=== PATIENT | female | born 1985 | race Asian ===

== ENCOUNTER 2016-10-23 06:46 | Inpatient (IN) | payer BC ==
[~2016-10-23 06:46] MED LIST: Buffered Lidocaine 0.9% SYRIN* 5 ML/SYR SYRINGE INTRADERM ONE; Famotidine IV* 10 MG/ML 2 ML (20 mg) IV ONE
[2016-10-23] MEDS ORDERED: Famotidine IV* 10 MG/ML 2 ML (20 mg) ONE (06:56)
[2016-10-23] MEDS ORDERED: ceFAZolin 2 GM PREMIX(*) 2 GM/50 ML BAG IVPB ONE (06:56)
[2016-10-23] MEDS ORDERED: KETAMINE HCL* 50 MG/ML 10 ML VIAL ONE (08:30)
[2016-10-23] MEDS ORDERED: Midazolam* 1 MG/ML 5 ML VIAL (5 MG) ONE (08:30)
[2016-10-23] MEDS ORDERED: Morphine PF AMP (0.5MG/ML)* 5 MG/10 ML AMP ONE (08:30)
[2016-10-23] MEDS ORDERED: oxyCODONE/Acetamin 5/325 MG* TAB PO PRN (09:05)
[2016-10-23] MEDS ORDERED: PROCHLORPERAZINE INJ 5 MG/ML 2 ML VIAL IV PRN (09:05)
[2016-10-23] MEDS ORDERED: Scopolomine PATCH Remove* 1 NOTE MISC PATCH OFF PRN (09:05)
[2016-10-23] MEDS ORDERED: Naloxone* 0.4 MG/ML 1 ML VIAL IV PRN (09:05)
[2016-10-23] MEDS ORDERED: Ondansetron INJ* 2 MG/ML VIAL IV PRN (09:05)
[2016-10-23] MEDS ORDERED: fentaNYL* 50 MCG/ML 2 ML VIAL (100 MCG VIAL) IV PRN (09:08)
[2016-10-23] MEDS ORDERED: Ondansetron INJ* 2 MG/ML VIAL ONE (09:49)
[2016-10-23] MEDS ORDERED: OXYTOCIN* 10 UNITS/ML 1 ML VIAL ONE (09:49)
[2016-10-23] MEDS ORDERED: Dexamethasone IV* 4 MG/ML 1 ML (4 MG) ONE (09:49)
[2016-10-23] MEDS ORDERED: Scopolamine 1.5 mg* PATCH ONE (09:49)
[2016-10-23] MEDS ORDERED: hydrALAZINE IV* 20 MG/ML VIAL ONE (10:04)
[2016-10-23] MEDS ORDERED: Dibucaine 1% 28.35 GM TUBE PR PRN (10:40)
[2016-10-23] MEDS ORDERED: Acetaminophen TAB* 325 MG PO PRN (10:40)
[2016-10-23] MEDS ORDERED: Witch Hazel PAD* JAR TOPICAL PRN (10:40)
[2016-10-23] MEDS ORDERED: Glycerin ADULT SUPP PR PRN (10:40)
[2016-10-23] MEDS ORDERED: Oxytocin in LR* 20 UNITS/1,000 ML BAG IVPB SCH (11:00)
[2016-10-23] MEDS ORDERED: Dextrose 50% Syringe 50 ML* 25 GM/50 ML SYRINGE IV PUSH PRN (11:01)
[2016-10-23] MEDS: Ibuprofen TAB* 600 MG PO PRN ×2 (11:47→17:46)
[2016-10-23] MEDS: Simethicone CHEW TAB* 80 MG PO SCH ×3 (11:47→20:50)
--- NOTE | 2016-10-23 12:26 | OP ---
OPERATIVE NOTE:* ADDENDUM: DESCRIPTION OF PROCEDURE: The patient was brought to the operating room. When spinal anesthesia was found to be adequate, a Rahman catheter was placed under sterile conditions. The patient was prepped and draped in the usual sterile fashion in the dorsal supine position with a leftward tilt. Time-out was performed. A Pfannenstiel skin incision was made through the old incision site. This was carried down to the underlying layer of fascia. The fascia was incised in the midline and the fascial incision was extended laterally using the Mars scissors. The fascia was grasped with the Tammy clamps and the rectus muscle was dissected using sharp and blunt dissection. The rectus muscle was in the midline. The peritoneum was identified, tented up, and entered. The peritoneal incision was extended superiorly and inferiorly with good visualization of the bladder. The bladder blade was inserted. The vesicouterine peritoneum was identified and a bladder flap was created. The bladder blade was reinserted and a low flap transverse incision was made on the uterus to the level of the membranes. The uterine incision was extended laterally bluntly. Membranes were ruptured with an Allis clamp. Clear amniotic fluid was encountered. The was delivered atraumatically from the vertex presentation. The cord was milked. The cord was clamped and cut and the infant was handed off to the waiting housetrailer servicer, Dr. Oliver. The baby was vigorous. The 's were 9 and 9. The weight was 8 pounds 3 ounces. The placenta was delivered. The uterus was cleared of all clots and debris. The uterus was exteriorized. The uterine incision was repaired using 0 Vicryl in a running locked fashion. A second layer of the same suture was used to imbricate and obtained excellent hemostasis. The ovaries and fallopian tubes were examined and found to be normal. The abdomen and pelvis were copiously irrigated with warm normal saline. Once again, the uterine incision was examined and found to be hemostatic. The uterus was returned to the pelvis. The gutters were cleared of all clots and debris. The peritoneum was closed using 3-0 Vicryl. The subfascial layer was examined and found to be hemostatic. The fascia was closed using 0 Vicryl. The subcutaneous tissue was irrigated. Any small bleeders were cauterized with the Bovie. The subcutaneous tissue was reapproximated with 3 interrupted sutures of 3-0 Vicryl. The skin was closed with 4-0 Monocryl in a subcuticular fashion. Steri -Strips were applied. A pressure dressing was applied and the patient was brought to recovery room, awake and in stable condition. [id number]/[facility] #: [id number] MTDDevante
--- NOTE | 2016-10-23 12:34 | OP ---
OPERATIVE REPORT: DATE OF OPERATION: 10/23/16 DATE OF : 83 SURGEON: Meghan Bender MD. SCREEN PRINTER: Dr. Eisenberg. ANESTHESIOLOGIST: Dr. Marie. ANESTHESIA: Spinal. PRE-OP DIAGNOSES: Prior , 37 weeks, mild preeclampsia superimposed on chronic hypertension . POST-OP DIAGNOSES: Prior , 37 weeks, mild preeclampsia superimposed on chronic hypertensio n. OPERATIVE PROCEDURE: Repeat low-flap transverse section via Pfannenstiel. Uterus closed in 2 layers. ESTIMATED BLOOD LOSS: 600 cc. URINE OUTPUT: 300 cc clear urine. FINDINGS: Viable male infant, the vertex was floating. The baby weighed 8 pounds 3 ounces. ' s were 9 and 9. Clear amniotic fluid. Normal-appearing uterus. Normal-appearing ovaries and fallop andreea tubes bilaterally. COMPLICATIONS: None. COUNTS: Sponge, lap, and needle count correct x2. CONDITION: The patient was brought to recovery room, awake and in stable condition. DICTATION ENDS ABRUPTLY [id number]/[facility] #: [id number]
[2016-10-23 13:30] LABS: Hematocrit 40 % (35-47); Mean Corpuscular HGB Conc 33 g/dl (31-36); Mean Corpuscular Hemoglobin 26 pg (27-31); Mean Corpuscular Volume 80 fL (80-97); Mean Platelet Volume 9 um3 (7.4-10.4); Red Blood Count 4.96 10^6/ul (4.0-5.4); Red Cell Distribution Width 15 % (10.5-15); White Blood Count 15.2 10^3/ul (3.5-10.8)
[2016-10-23 13:38] LABS: EGFR African American 224.9 (>60); EGFR Non-African American 174.9 (>60)
[2016-10-23] MEDS: Heparin VIAL(*) 5000 UNITS/ML VIAL (FIVE THOUSAND) SUBCUT SCH ×2 (16:08→23:45)
[2016-10-23] MEDS: Docusate CAP* 100 MG PO SCH ×2 (16:11→20:49)
[2016-10-23] MEDS: Insulin LISPRO* 1 UNITS UNIT SUBCUT SCH ×2 (20:05→20:50)
[2016-10-23] MEDS: Labetalol TAB* 300 MG PO SCH (20:50)
[2016-10-24] MEDS: Insulin LISPRO* 1 UNITS UNIT SUBCUT SCH (07:30)
[2016-10-24] MEDS: Heparin VIAL(*) 5000 UNITS/ML VIAL (FIVE THOUSAND) SUBCUT SCH ×2 (08:11→16:28)
[2016-10-24 08:38] LABS: Hematocrit 35 % (35-47); Hemoglobin 11.5 g/dl (12.0-16.0); Mean Corpuscular HGB Conc 33 g/dl (31-36); Mean Corpuscular Hemoglobin 27 pg (27-31); Mean Corpuscular Volume 81 fL (80-97); Mean Platelet Volume 9 um3 (7.4-10.4); Red Blood Count 4.31 10^6/ul (4.0-5.4); Red Cell Distribution Width 14 % (10.5-15); White Blood Count 10.1 10^3/ul (3.5-10.8)
[2016-10-24] MEDS ORDERED: oxyCODONE/Acetamin 5/325 MG* TAB PO PRN ×2 (08:50)
[2016-10-24] MEDS: Docusate CAP* 100 MG PO SCH ×3 (08:52→21:11)
[2016-10-24] MEDS: Labetalol TAB* 300 MG PO SCH ×2 (08:52→19:59)
[2016-10-24] MEDS: Levothyroxine TAB* 100 MCG TAB PO SCH (08:52)
[2016-10-24] MEDS: Simethicone CHEW TAB* 80 MG PO SCH ×4 (08:52→21:11)
[2016-10-24] MEDS ORDERED: Ferrous Gluconate TAB* 324 MG TAB PO SCH (09:00)
[2016-10-24] MEDS: Ibuprofen TAB* 600 MG PO PRN ×3 (09:01→21:11)
[2016-10-25] MEDS: Ibuprofen TAB* 600 MG PO PRN ×2 (03:09→08:41)
[2016-10-25] MEDS: Levothyroxine TAB* 100 MCG TAB PO SCH (06:03)
[2016-10-25] MEDS: Docusate CAP* 100 MG PO SCH (08:40)
[2016-10-25] MEDS: Labetalol TAB* 300 MG PO SCH (08:40)
[2016-10-25] MEDS: Simethicone CHEW TAB* 80 MG PO SCH (08:40)
[2016-10-25] MEDS: Heparin VIAL(*) 5000 UNITS/ML VIAL (FIVE THOUSAND) SUBCUT SCH (08:42)
[2016-10-25 11:33] VITALS: BP 144/80
== END 2016-10-25 13:20 | disposition home or self-care (01) | DRG 540 ==
LOC: MCHOB 06:46
PROVIDERS: ADMIT Obstetrics & Gynecology; ATTEND Obstetrics & Gynecology
PROC: 10D00Z1 Extraction of Products of Conception, Low, Open Approach (ICD-10-PCS; principal; 2016-10-23 08:45)
DX: O34.211 Maternal care for low transverse scar from previous cesarean delivery (principal); Z68.41 Body mass index [BMI] 40.0-44.9, adult; O14.04 Mild to moderate pre-eclampsia, complicating childbirth; O24.429 Gestational diabetes mellitus in childbirth, unspecified control; O16.4 Unspecified maternal hypertension, complicating childbirth; O99.214 Obesity complicating childbirth; O99.284 Endocrine, nutritional and metabolic diseases complicating childbirth; E03.9 Hypothyroidism, unspecified; E66.01 Morbid (severe) obesity due to excess calories; Z3A.37 37 weeks gestation of pregnancy; Z37.0 Single live birth
CPT/HCPCS: 36415; 82565; 84520; 85025; 85610; 85730; A9270-GY; J0360; J0690; J1100; J1644; J2250; J2405; J2590

== ENCOUNTER 2016-11-21 10:08 | Emergency (ER) | payer BC ==
[2016-11-21 11:02] VITALS: BP 161/109
--- NOTE | 2016-11-21 11:25 | UC ---
Eye Complaint HPI - HPI Summary HPI Summary: complaint of waking up in the middle of the night with itching red eye there was drainge coming out of her eye denies vision changes and eye pain hasn't taken blood pressure today - History of Current Complaint Hx Obtained From: Patient Hx Last Menstrual Period: 02/2016 <Sara Wick - Last Filed: 11/21/16 11:27> <Lisbeth Wing - Last Filed: 11/21/16 12:34> - History of Current Complaint Chief Complaint: UCEye Stated Complaint: POSSIBLE PINK EYE Time Seen by Provider: 11/21/16 11:14 - Allergies/Home Medications Allergies/Adverse Reactions: Allergies Allergy/AdvReac Type Severity Reaction Status Date / Time Clindamycin Allergy Intermediate Rash Verified 11/21/16 10:56 Home Medications: Home Medications Sertraline* [Zoloft*] 25 mg PO DAILY 11/21/16 [History Confirmed 11/21/16] PMH/Surg Hx/FS Hx/Imm Hx Previously Healthy: Yes Endocrine History: Hypothyroidism Cardiovascular History: Hypertension - Surgical History Surgical History: Yes Surgery Procedure, Year, and Place: Apr 2012 -Appendectomy. September 2012, OCTOBER 2016 - - Family History Known Family History: Negative: Cardiac Disease, Hypertension, Diabetes - Social History Occupation: Employed Full-time Lives: With Family Alcohol Use: None Substance Use Type: None Smoking Status (MU): Never Smoked Tobacco Type: Cigarettes Have You Smoked in the Last Year: No When Did the Patient Quit Smoking/Using Tobacco: 2011 - Immunization History Most Recent Influenza Vaccination: declined Most Recent Pneumonia Vaccination: unsure <Sara Wick - Last Filed: 11/21/16 11:27> Review of Systems Constitutional: Negative Skin: Negative Eyes: Drainage, Eye Redness ENT: Negative Respiratory: Negative Cardiovascular: Negative Gastrointestinal: Negative Genitourinary: Negative Motor: Negative Neurovascular: Negative Musculoskeletal: Negative Neurological: Negative Psychological: Negative All Other Systems Reviewed And Are Negative: Yes <Sara Wick - Last Filed: 11/21/16 11:27> Physical Exam Triage Information Reviewed: Yes Appearance: No Pain Distress, Well-Nourished Vital Signs: Initial Vital Signs Temp 98.0 F 11/21/16 10:58 Pulse 85 11/21/16 10:58 Resp 16 11/21/16 10:58 BP 161/109 11/21/16 10:58 Pulse Ox 97 11/21/16 10:58 Vital Signs Reviewed: Yes Eyes: Positive: Conjunctiva Inflamed - left, Discharge - left ENT: Positive: Pharynx normal, TMs normal Neck: Positive: No Lymphadenopathy Respiratory: Positive: Lungs clear, Normal breath sounds, No respiratory distress, No accessory muscle use Cardiovascular: Positive: RRR, No Murmur, Pulses Normal Abdomen Description: Positive: Nontender, Soft Bowel Sounds: Positive: Present Musculoskeletal: Positive: No Edema Neurological: Positive: Alert Psychological Exam: Normal Skin Exam: Normal <Sara Wick - Last Filed: 11/21/16 11:27> Vital Signs: Initial Vital Signs Temp 98.0 F 11/21/16 10:58 Pulse 85 11/21/16 10:58 Resp 16 11/21/16 10:58 BP 161/109 11/21/16 10:58 Pulse Ox 97 11/21/16 10:58 <Lisbeth Wing - Last Filed: 11/21/16 12:34> Eye Complaint Course/Dx - Differential Dx/Diagnosis Differential Diagnosis/HQI/PQRI: Conjunctivitis, Corneal Abrasion Provider Diagnoses: left conjuctivitis, elevated blood pressure <Sara Wick - Last Filed: 11/21/16 11:27> Discharge <Sara Wick - Last Filed: 11/21/16 11:27> <Lisbeth Wing - Last Filed: 11/21/16 12:34> - Discharge Plan Condition: Stable Disposition: HOME Prescriptions: Tobramycin (Ophth) [Tobrex] 2 drop OP Q4HR #1 remedios Patient Education Materials: Conjunctivitis (ED) Referrals: Bassam Hammer DO [Primary Care Provider] - Additional Instructions: Please start antibiotic eye drops as directed Increase fluids and rest Take acetaminophen for fever or pain Please review your discharge instructions. If your symptoms do not improve please call your primary care provider or return to urgent care. Your blood pressure is elevated. Please contact your primary care provider within 1 -4 weeks for further evaluation. Attestation Statement User Type: Provider - I was available for consult. This patient was seen by the AUDRA. The patient was not presented to, seen by, or examined by me. -Christiano <Lisbeth Wing - Last Filed: 11/21/16 12:34>
== END 2016-11-21 11:30 | disposition home or self-care (01) ==
LOC: UCEAST 10:08
DX: H10.9 Unspecified conjunctivitis (principal); R03.0 Elevated blood-pressure reading, without diagnosis of hypertension; Z87.891 Personal history of nicotine dependence
CPT/HCPCS: 99212; G0463

== ENCOUNTER 2017-03-05 07:37 | Emergency (ER) | payer BC ==
[2017-03-05 07:47] VITALS: BP 170/106
--- NOTE | 2017-03-05 09:08 | UC ---
Skin Complaint HPI - HPI Summary HPI Summary: 4 DAYS OF TENDER NODULE TOP OF INTERGLUTEAL CREASE TO THE LEFT. GETTING BIGGER. NO DRAINAGE. HAS H/O RECURRENT ABSCESSES IN GROIN REGION BUT NONE IN PAST 6 MONTHS. NO FEVER. - History of Current Complaint Chief Complaint: UCSkin Time Seen by Provider: 03/05/17 08:11 Stated Complaint: BUMP ON TAILBONE Hx Obtained From: Patient Hx Last Menstrual Period: IUD placed couple weeks ago, on-going since. Onset/Duration: Gradual Onset, Lasting Days, Still Present Timing: Constant Onset Severity: Moderate Current Severity: Moderate Pain Intensity: 7 Pain Scale Used: 0-10 Numeric Character: Pain, Redness, Raised Aggravating Factor(s): Touch Alleviating Factor(s): Nothing Associated Signs & Symptoms: Positive: Tenderness. Negative: Fever, Drainage - Allergy/Home Medications Allergies/Adverse Reactions: Allergies Allergy/AdvReac Type Severity Reaction Status Date / Time Clindamycin Allergy Intermediate Rash Verified 03/05/17 07:41 Review of Systems Constitutional: Negative Skin: Other - ABSCESS Respiratory: Negative Cardiovascular: Negative Gastrointestinal: Negative All Other Systems Reviewed And Are Negative: Yes PMH/Surg Hx/FS Hx/Imm Hx Endocrine History: Hypothyroidism Cardiovascular History: Hypertension - Surgical History Surgical History: Yes Surgery Procedure, Year, and Place: Apr 2012 -Appendectomy. September 2012, OCTOBER 2016 - - Family History Known Family History: Negative: Cardiac Disease, Hypertension, Diabetes - Social History Alcohol Use: None Substance Use Type: None Smoking Status (MU): Former Smoker Type: Cigarettes Have You Smoked in the Last Year: No When Did the Patient Quit Smoking/Using Tobacco: 2011 - Immunization History Most Recent Influenza Vaccination: declined Most Recent Pneumonia Vaccination: unsure Physical Exam Triage Information Reviewed: Yes Appearance: Well-Appearing, No Pain Distress, Well-Nourished Vital Signs: Initial Vital Signs Temp 97.1 F 03/05/17 07:42 Pulse 80 03/05/17 07:42 Resp 16 03/05/17 07:42 BP 170/106 03/05/17 07:42 Pulse Ox 83 03/05/17 07:42 Vital Signs Reviewed: Yes Eyes: Positive: Conjunctiva Clear ENT: Positive: Hearing grossly normal Neck: Positive: Supple Respiratory: Positive: No respiratory distress, No accessory muscle use Cardiovascular: Positive: Pulses Normal Abdomen Description: Positive: Soft Musculoskeletal: Positive: No Edema Neurological: Positive: Alert Psychological: Positive: Age Appropriate Behavior Skin: Positive: Other - 1 CM TENDER NODULE LEFT OF GLUTEAL CLEFT CEPHALAD. NO FLUCTUANCE OR DRAINAGE Course/Dx - Course Course Of Treatment: ABSCESS NOT IN CLASSIC PILONIDAL CYST LOCATION. EITHER WAY , NOT YET READY TO BE INCISED. ADVISED HOT SOAKS AND ABX COVERAGE. IF NOT IMPROVING SEEK FOLLOW-UP. DISCUSSED POSSIBILITY OF HYDRADENITIS PT HAS RECURRENT ABSCESSES IN GROIN REGION. PT TO F/U WITH PCP. - Diagnoses Provider Diagnoses: ABSCESS INTERGLUTEAL CLEFT Discharge - Discharge Plan Condition: Stable Disposition: HOME Prescriptions: Sulfamethox/Trimethoprim DS* [Bactrim DS 800/160 TAB*] 1 tab PO BID #20 tab Patient Education Materials: Abscess (ED) Referrals: Bassam Hammer DO [Primary Care Provider] - If Needed Additional Instructions: WARM/HOT COMPRESSES/SOAKS AT LEAST 4 TIMES DAILY SEEK FOLLOW-UP IF YOU DEVELOP SPREADING REDNESS OF THE SKIN, PERSISTENT PURULENT DRAINAGE, FEVER, INCREASED PAIN OR ANY OTHER CONCERNING SYMPTOMS.
== END 2017-03-05 08:40 | disposition home or self-care (01) ==
LOC: UCEAST 07:37
DX: L02.31 Cutaneous abscess of buttock (principal); E03.9 Hypothyroidism, unspecified; I10 Essential (primary) hypertension; Z88.1 Allergy status to other antibiotic agents; Z87.891 Personal history of nicotine dependence
CPT/HCPCS: 99212; G0463

== ENCOUNTER 2017-05-04 20:47 | Emergency (ER) | payer BC ==
[2017-05-04 20:56] VITALS: BP 184/116
[2017-05-04] MEDS ORDERED: Albuterol/Ipratropium NEB.SOL* Albuterol 2.5 MG/Ipratropium 0.5 MG 3 ML INH ONE (21:01)
--- NOTE | 2017-05-04 21:01 | UC ---
Respiratory Complaint HPI - HPI Summary HPI Summary: 31 year old female presents with complains cough and nasal congestion. - History of Current Complaint Chief Complaint: UCRespiratory Stated Complaint: COUGH, AND SORE THROAT Time Seen by Provider: 05/04/17 20:49 Hx Obtained From: Patient Hx From Patient Unobtainable Due To: Dementia Hx Last Menstrual Period: IUD placed couple weeks ago, on-going since. Onset/Duration: Sudden Onset Severity Initially: Moderate Severity Currently: Moderate Character: Cough: Productive Alleviating Factors: Bronchodilator Associated Signs And Symptoms: Positive: Wheezing, Nasal Congestion - Allergies/Home Medications Allergies/Adverse Reactions: Allergies Allergy/AdvReac Type Severity Reaction Status Date / Time Clindamycin Allergy Intermediate Rash Verified 03/05/17 07:41 PMH/Surg Hx/FS Hx/Imm Hx Previously Healthy: Yes - Surgical History Surgical History: Yes Surgery Procedure, Year, and Place: Apr 2012 -Appendectomy. September 2012, OCTOBER 2016 - - Family History Known Family History: Negative: Cardiac Disease, Hypertension, Diabetes - Social History Alcohol Use: None Substance Use Type: None Smoking Status (MU): Former Smoker Type: Cigarettes Have You Smoked in the Last Year: No When Did the Patient Quit Smoking/Using Tobacco: 2011 - Immunization History Most Recent Influenza Vaccination: declined Most Recent Pneumonia Vaccination: unsure Review of Systems Constitutional: Negative Skin: Negative Eyes: Negative ENT: Negative Respiratory: Shortness Of Breath, Cough Cardiovascular: Negative Gastrointestinal: Negative Genitourinary: Negative Motor: Negative Neurovascular: Negative Musculoskeletal: Negative Neurological: Negative Psychological: Negative All Other Systems Reviewed And Are Negative: Yes Physical Exam Triage Information Reviewed: Yes Vital Signs: Initial Vital Signs Temp 36.3 C 05/04/17 20:51 Pulse 86 05/04/17 20:51 Resp 18 05/04/17 20:51 BP 184/116 05/04/17 20:51 Pulse Ox 98 05/04/17 20:51 Vital Signs Reviewed: Yes Eye Exam: Normal ENT: Positive: Nasal congestion, Nasal drainage Dental Exam: Normal Neck exam: Normal Neck: Positive: 1 Respiratory: Positive: Rhonchi, Wheezing Cardiovascular Exam: Normal Abdominal Exam: Normal Musculoskeletal Exam: Normal Neurological Exam: Normal Psychological Exam: Normal Skin Exam: Normal UC Diagnostic Evaluation - Laboratory O2 Sat by Pulse Oximetry: 98 Respiratory Course/Dx - Differential Dx/Diagnosis Provider Diagnoses: cough. sinusitis Discharge - Discharge Plan Condition: Stable Disposition: HOME Prescriptions: Albuterol HFA INHALER* [Ventolin HFA Inhaler*] 1 puff INH Q6H PRN #1 mdi PRN Reason: Wheezing Amoxicillin PO (*) [Amoxicillin 875 MG (*)] 875 mg PO BID #20 tab Benzonatate CAP* [Tessalon 100 MG CAP*] 100 mg PO TID PRN #30 cap PRN Reason: Cough Guaifenesin-Codeine [Cheratussin AC] 1 teasp PO Q8H PRN #120 ml MDD 15 ml PRN Reason: Cough Patient Education Materials: Allergic Rhinitis (ED) Referrals: Bassam Hammer DO [Primary Care Provider] -
[2017-05-04] MEDS ORDERED: PrednisoLONE LIQ 3 MG/ML* 15 MG/5 ML UDC PO ONE (21:02)
[2017-05-04] MEDS ORDERED: Benzonatate CAP* 100 MG PO ONE ×2 (21:02→21:23)
[2017-05-04] MEDS ORDERED: Amoxicillin PO (*) 500 MG CAP PO ONE (21:17)
[2017-05-05] MEDS ORDERED: Amoxicillin PO (*) 875 MG TAB PO ONE (21:06)
== END 2017-05-04 21:32 | disposition home or self-care (01) ==
LOC: UCEAST 20:47
DX: R05 Cough (principal); J32.9 Chronic sinusitis, unspecified; Z87.891 Personal history of nicotine dependence
CPT/HCPCS: 87651; 99213; A9270-GY; G0463; J7510

== ENCOUNTER 2017-08-07 11:03 | Emergency (ER) | payer BC ==
[2017-08-07 11:23] VITALS: BP 188/134
--- NOTE | 2017-08-07 11:28 | UC ---
FLU HPI - HPI Summary HPI Summary: Pt presents with body aches and dry cough since last night. She tells me that she is worried she has the flu as she has two young children at home. Denies SOB , chest pain, abdominal pain, n/v/d/c. - History of Current Complaint Chief Complaint: UCRespiratory Stated Complaint: FLU SYMPTOMS Time Seen by Provider: 08/07/17 11:28 Hx Obtained From: Patient Hx Last Menstrual Period: 07/31/17 Onset/Duration: Sudden Onset Severity Currently: Mild Severity Initially: Mild Pain Intensity: 3 Pain Scale Used: 0-10 Numeric - Allergy/Home Medications Allergies/Adverse Reactions: Allergies Allergy/AdvReac Type Severity Reaction Status Date / Time MS Clindamycin [Clindamycin] Allergy Intermediate Rash Verified 03/05/17 07:41 clindamycin Allergy Rash Verified 08/07/17 11:23 PMH/Surg Hx/FS Hx/Imm Hx Endocrine History: Hypothyroidism Cardiovascular History: Hypertension Psychological History: Anxiety, Depression - Surgical History Surgical History: Yes Surgery Procedure, Year, and Place: Apr 2012 -Appendectomy. September 2012, OCTOBER 2016 - - Family History Known Family History: Negative: Cardiac Disease, Hypertension, Diabetes - Social History Occupation: Employed Full-time Lives: With Family Alcohol Use: Occasionally Substance Use Type: None Smoking Status (MU): Former Smoker Type: Cigarettes Have You Smoked in the Last Year: No When Did the Patient Quit Smoking/Using Tobacco: 2011 - Immunization History Most Recent Influenza Vaccination: declined Most Recent Pneumonia Vaccination: unsure Review of Systems Constitutional: Fatigue, Other - Body aches Skin: Negative Eyes: Negative ENT: Negative Respiratory: Cough Cardiovascular: Negative Gastrointestinal: Negative Neurovascular: Negative Neurological: Negative Psychological: Negative All Other Systems Reviewed And Are Negative: Yes Physical Exam - Summary Physical Exam Summary: GENERAL: NAD. WDWN. No pain distress. SKIN: No rashes, sores, ulcers, masses, lesions. HEENT: Head: AT/NC Eyes: EOM intact. Conjunctiva clear without inflammation or discharge. Ears: Hearing grossly normal. TMs intact, no bulging, erythema, or edema. Nose: Nasal mucosa pink and moist. NTTP maxillary and frontal sinus. Throat: Posterior oropharynx without exudates, erythema, or tonsillar enlargement. Uvula midline. NECK: Supple. Nontender. No lymphadenopathy. CHEST: CTAB. No r/r/w. No accessory muscle use. Breathing comfortably and in no distress. CV: RRR. Without m/r/g. Pulses intact. Brisk cap refill. NEURO: Alert. CN II-XII grossly intact. PSYCH: Age appropriate behavior. Triage Information Reviewed: Yes Vital Signs: Initial Vital Signs Temp 98.0 F 08/07/17 11:20 Pulse 87 08/07/17 11:20 Resp 16 08/07/17 11:20 BP 188/134 08/07/17 11:20 Pulse Ox 100 08/07/17 11:20 Flu Course/Dx - Course Course Of Treatment: 178/85 recheck BP. Did not take her medications this morning. POC flu negative. Suspect viral illness. Advised rest, fluids, and tylenol/ibuprofen for fever/discomfort. - Differential Dx/Diagnosis Provider Diagnoses: Viral syndrome Discharge - Sign-Out/Discharge Documenting (check all that apply): Discharge - Discharge Plan Condition: Stable Disposition: HOME Patient Education Materials: Viral Syndrome (ED) Referrals: Bassam Hammer DO [Primary Care Provider] - Additional Instructions: If you develop a fever, shortness of breath, chest pain, new or worsening symptoms - please call your PCP or go to the ED. Your blood pressure was high at todays visit. Please see your primary provider within 4 weeks for recheck and re-evaluation. - Billing Disposition and Condition Condition: STABLE Disposition: HOME
== END 2017-08-07 12:30 | disposition home or self-care (01) ==
LOC: UCEAST 11:03
DX: B34.9 Viral infection, unspecified (principal); E03.9 Hypothyroidism, unspecified; I10 Essential (primary) hypertension; F41.9 Anxiety disorder, unspecified; F32.9 Major depressive disorder, single episode, unspecified; Z88.1 Allergy status to other antibiotic agents; Z87.891 Personal history of nicotine dependence
CPT/HCPCS: 87502; 99211; G0463

== ENCOUNTER 2018-01-06 16:43 | Emergency (ER) | payer BC ==
[2018-01-06 17:03] VITALS: BP 182/126
--- NOTE | 2018-01-06 17:19 | UC ---
Complaint Female HPI - HPI Summary HPI Summary: A 32 y/o female presents to [facility] c/o UTI symptoms reaching 3/10 in severity. Currently, the patient is in no pain distress. As per triage, "UTI symptoms- frequency, burning". According to the patient, she has been experiencing a burning sensation and vaginal pain since earlier today. Additionally, she noted that her urination has decreased. Denies any vaginal discharge or bowel issues. The patient believes she has a UTI as she has had them before and what she experiences today is similar to her previous UTI symptoms. PMHx of UTI and appendectomy. LKMP was about a week ago, no chance for . Patient took no medications. Pt is allergic to clindamycin. - History Of Current Complaint Chief Complaint: UCGU Stated Complaint: BURNING URINATION Hx Obtained From: Patient Hx Last Menstrual Period: 12/22/17 Onset/Duration: Sudden Onset, Lasting Hours, Still Present Timing: Constant, Lasting Hours Severity Initially: Mild Severity Currently: Mild Pain Intensity: 3 Pain Scale Used: 0-10 Numeric Radiates to: No Aggravating Factor(s): Nothing Alleviating Factor(s): Nothing Associated Signs And Symptoms: Positive: Negative - Allergies/Home Medications Allergies/Adverse Reactions: Allergies Allergy/AdvReac Type Severity Reaction Status Date / Time clindamycin Allergy Rash Verified 01/06/18 17:04 PMH/Surg Hx/FS Hx/Imm Hx Endocrine History: Hypothyroidism Cardiovascular History: Hypertension - Surgical History Surgical History: Yes Surgery Procedure, Year, and Place: Apr 2012 -Appendectomy. September 2012, OCTOBER 2016 - - Family History Known Family History: Negative: Cardiac Disease, Hypertension, Diabetes - Social History Alcohol Use: Occasionally Substance Use Type: None Smoking Status (MU): Former Smoker Type: Cigarettes Have You Smoked in the Last Year: No When Did the Patient Quit Smoking/Using Tobacco: 2011 - Immunization History Most Recent Influenza Vaccination: declined Most Recent Pneumonia Vaccination: unsure Review of Systems Constitutional: Negative Skin: Negative Eyes: Negative ENT: Negative Respiratory: Negative Cardiovascular: Negative Gastrointestinal: Negative Genitourinary: Frequency - Decreased, Vaginal/Penile Burning, Vaginal/Penile Pain Motor: Negative Neurovascular: Negative Musculoskeletal: Negative Neurological: Negative Psychological: Negative Is Patient Immunocompromised?: No All Other Systems Reviewed And Are Negative: Yes Physical Exam - Summary Physical Exam Summary: General: well-appearing, no pain distress Skin: warm, color reflects adequate perfusion, dry Head: normal Eyes: EOMI, YAIMA ENT: normal Neck: supple, nontender Respiratory: CTA, breath sounds present Cardiovascular: RRR Abdomen: soft, nontender Bowel: present Musculoskeletal: normal, strength/ROM intact Neurological: sensory/motor intact, A&O x3 Psychological: affect/mood appropriate Triage Information Reviewed: Yes Vital Signs: Initial Vital Signs Temp 98.6 F 01/06/18 16:59 Pulse 78 01/06/18 16:59 Resp 16 01/06/18 16:59 BP 182/126 01/06/18 16:59 Pulse Ox 100 01/06/18 16:59 Vital Signs Reviewed: Yes Complaint Female Dx - Course Course Of Treatment: Medications reviewed. Allergies noted. BP noted and advised to follow up with PCP. SX CONSISTENT WITH UTI. RX BACTRIM/PYRIDIUM. PATIENT DENIES C/O STI. URINE SENT FOR CX. F/U PMD; RECHECK SOONER IF WORSE. - Differential Dx/Diagnosis Provider Diagnoses: UTI Discharge - Sign-Out/Discharge Documenting (check all that apply): Patient Departure - DISCHARGE All imaging exams completed and their final reports reviewed: No Studies - Discharge Plan Condition: Stable Disposition: HOME Prescriptions: Phenazopyridine 200 mg (NF) [Pyridium 200 MG tab *] 200 mg PO Q6H PRN #10 tab PRN Reason: Pain Sulfamethox/Trimethoprim DS* [Bactrim DS 800/160 TAB*] 1 tab PO BID #14 tab Patient Education Materials: Urinary Tract Infection in Women (ED) Referrals: Bassam Hammer DO [Primary Care Provider] - Additional Instructions: FOLLOW UP WITH YOUR DOCTOR IF NOT COMPLETELY IMPROVED. GET RECHECKED FOR ANY WORSENING OF YOUR CONDITION; FEVER, YOU FEEL ILL OR QUESTIONS OR CONCERNS. YOUR BLOOD PRESSURE WAS ELEVATED DURING TODAY'S VISIT; PLEASE FOLLOW UP WITH YOUR PRIMARY CARE PROVIDER WITHIN A WEEK FOR FURTHER EVALUATION. - Billing Disposition and Condition Condition: STABLE Disposition: Home - Attestation Statements Document Initiated by Scribe: Yes Documenting Scribe: Cristoabl Otero Provider For Whom Scribe is Documenting (Include Credential): Stanton Garcia MD Scribe Attestation: Cristobal Neal, scribed for Stanton Garcia MD on 01/06/18 at 1758. Scribe Documentation Reviewed: Yes Provider Attestation: The documentation as recorded by the scribe, Cristobal Otero accurately reflects the service I personally performed and the decisions made by me, Stanton Garcia MD
== END 2018-01-06 18:04 | disposition home or self-care (01) ==
LOC: UCEAST 16:43
DX: N39.0 Urinary tract infection, site not specified (principal); I10 Essential (primary) hypertension; R10.2 Pelvic and perineal pain; Z87.891 Personal history of nicotine dependence; Z88.1 Allergy status to other antibiotic agents
CPT/HCPCS: 81003; 84702; 87086; 99212; G0463

== ENCOUNTER 2018-03-26 07:39 | Emergency (ER) | payer BC ==
--- NOTE | 2018-03-26 08:35 | UC ---
Skin Complaint HPI - HPI Summary HPI Summary: 32 y/o female presents to the urgent care c/o a painful rash on the Rt side of her upper mid back now radiating to the abdomen since yesterday. Pt reports symptoms started 03/22/2018 w/ Rt flank pain like "it feels like a stitch like when you run" the she felt like a a sunburn sensation in her Rt arm and Rt side of abdomen. Pt w/ Hx of chicken pox as a child. Pain is 5/10 burning sensation. She has not taken anything to alleviate symptoms. Pt forgot to tke her BP medication this morning and that it is the reason her BP it is elevated. Pt denies CUELLAR, visual disturbances, palpitations, chest pain, dizziness, SOB, abdominal pain,N/v/D, photophobia. - History of Current Complaint Chief Complaint: UCBackPain Time Seen by Provider: 03/26/18 08:12 Stated Complaint: CRAMPING, BURNING PAIN R SIDE BODY Hx Obtained From: Patient Hx Last Menstrual Period: unsure, mirena Onset/Duration: Gradual Onset, Lasting Days - 5 days, Still Present, Worse Since - yesterday Skin Exposure Onset/Duration: Days Ago - 5 massimo Timing: Constant Onset Severity: Mild Current Severity: Moderate Pain Intensity: 6 Pain Scale Used: 0-10 Numeric Location: Discrete - RT side of mid back radiating to the mid abdomen Character: Pruritus, Pain, Redness Aggravating Factor(s): Touch Alleviating Factor(s): Nothing Associated Signs & Symptoms: Positive: Rash, Tenderness. Negative: Nausea, Vomiting, Numbness, Diaphoresis, Weakness, Fever, Chills, Chest Pain, Hoarseness , Lightheadedness Related History: Other: - chicken pox as a child - Allergy/Home Medications Allergies/Adverse Reactions: Allergies Allergy/AdvReac Type Severity Reaction Status Date / Time clindamycin Allergy Rash Verified 03/26/18 07:48 Review of Systems All Other Systems Reviewed And Are Negative: Yes Constitutional: Positive: Negative Skin: Positive: Rash - Rt side of mid back radiating to the abdomen w/ a tingling sensation and mild pain Eyes: Positive: Negative ENT: Positive: Negative Respiratory: Positive: Negative Cardiovascular: Positive: Negative Gastrointestinal: Positive: Negative Genitourinary: Positive: Negative Motor: Positive: Negative Neurovascular: Positive: Negative Musculoskeletal: Positive: Negative Neurological: Positive: Negative Psychological: Positive: Negative Is Patient Immunocompromised?: No PMH/Surg Hx/FS Hx/Imm Hx Previously Healthy: Yes Endocrine History: Hypothyroidism Cardiovascular History: Hypertension - Surgical History Surgical History: Yes Surgery Procedure, Year, and Place: Apr 2012 -Appendectomy. September 2012, OCTOBER 2016 - - Family History Known Family History: Positive: Unknown - Pt is adopted Negative: Cardiac Disease, Hypertension, Diabetes - Social History Occupation: Employed Full-time Lives: With Family Alcohol Use: Occasionally Substance Use Type: None Smoking Status (MU): Former Smoker Type: Cigarettes Have You Smoked in the Last Year: No When Did the Patient Quit Smoking/Using Tobacco: 2011 - Immunization History Most Recent Influenza Vaccination: declined Most Recent Pneumonia Vaccination: unsure Physical Exam - Summary Physical Exam Summary: Vital Signs Reviewed: Yes General: well developed, well nourished obese female sitting in the examining table w/o any apparent distress. Eyes: Positive: Conjunctiva Clear - PERRLA, EOMI ENT: Positive: Normal ENT inspection, Hearing grossly normal, Pharynx normal, TMs normal Neck: Positive: Supple, Nontender, No Lymphadenopathy Respiratory: Positive: Chest nontender, Lungs clear, Normal breath sounds Cardiovascular: Positive: RRR, No Murmur, Pulses Normal Abdomen Description: Positive: Nontender, No Organomegaly, Soft. Negative: CVA Tenderness (R), CVA Tenderness (L) Bowel Sounds: Positive: Present Musculoskeletal: Positive: Strength Intact, ROM Intact, No Edema Neurological Exam: Normal Psychological Exam: Normal Skin: Positive: rashes - Positive mild erythematous maculopapular eruption, some papule with clear vesicles. located in the RT mid lateral side of back in a dermatomal distribution towards the mid abdomen mild tenderness to palpation , no swelling observed. Triage Information Reviewed: Yes Vital Signs: Initial Vital Signs Temp 97.6 F 03/26/18 07:49 Pulse 74 03/26/18 07:49 Resp 18 03/26/18 07:49 BP 192/119 03/26/18 07:49 Pulse Ox 98 03/26/18 07:49 Course/Dx - Course Course Of Treatment: 32 y/o female presents to the urgent care c/o a painful rash on the Rt side of her upper mid back now radiating to the abdomen since yesterday. Pt reports symptoms started 03/22/2018 w/ Rt flank pain like "it feels like a stitch like when you run" the she felt like a a sunburn sensation in her Rt arm and Rt side of abdomen. Pt w/ Hx of chicken pox as a child. Pain is 5/10 burning sensation. She has not taken anything to alleviate symptoms. Pt forgot to tke her BP medication this morning and that it is the reason her BP it is elevated. Pt denies CUELLAR, visual disturbances, palpitations, chest pain, dizziness, SOB, abdominal pain,N/v/D, photophobia. Hx obtained. Pt's BP extremely elevated BP:192/119. Manually 174/110. Pt is hemodynamically stable, A &OX3.and asymptomatic, no papilledema observed on exam. Pt with Herpes Zoster on the RT mid lateral side of back on examination. Pt Rx valtrex and Ibuprofen PO to alleviate symptoms. Pt advised if not improvement or worsening of symptoms to return to the clinic or f/u with PCP for further treatment. Your BP is elevated extremely elevated today. Pt strongly advised to immediately take her BP medication as sson as she gets home and monitor BP and if it continues elevated and she develops CUELLAR, SOB, please decrease salt in your diet , monitor BP and if it continues to be elevated please f/u with your PCP for further management. PT understood and agreed with D/C instructions - Differential Diagnoses - Skin Complaint Differential Diagnoses: Abscess, Cellulitis, Contact Dermatitis, Local Allergic Reaction, MRSA, Varicella Zoster - Diagnoses Provider Diagnoses: 1- Varicella Zoster Discharge - Sign-Out/Discharge Documenting (check all that apply): Patient Departure - d/c home All imaging exams completed and their final reports reviewed: No Studies - Discharge Plan Condition: Stable Disposition: HOME Prescriptions: Ibuprofen TAB* [Motrin TAB* 800 MG] 800 mg PO Q6H PRN #30 tab PRN Reason: Pain ValACYclovir (*) [Valtrex 1 GM(*)] 1 gm PO TID #21 tab Patient Education Materials: Shingles (ED), Low-Sodium Diet (ED), Hypertensive Crisis (ED) Referrals: Bassam Hammer DO [Primary Care Provider] - 2 Days Additional Instructions: 1-Please Take [place] PO as directed to alleviate rash. [place] hand washing to avoid spread. Avoid contact w/ women 2-Take ibuprofen PO after meals for pain. 3-If symptoms do not improve or worsen please f/u with your PCP in 2-3 days or return to the urgent care for further evaluation and treatment. 4- Please a soson as you go home take your BP medication. your BP is very elevated, if you develop headache, dizziness, SOB, chest pain, please go immediately ot he Er for further management. Otherwise, decrease salt in your diet, monitor BP and if it continues to be elevated please f/u with your PCP in 2-3 days for further management - Billing Disposition and Condition Condition: STABLE Disposition: Home
[2018-03-26 09:20] VITALS: BP 174/110
[2018-03-26] MEDS ORDERED: NS 0.9% 1000 ML* 1,000 ML IV ONE (13:27)
== END 2018-03-26 09:05 | disposition home or self-care (01) ==
LOC: UCEAST 07:39
DX: B01.9 Varicella without complication (principal); I10 Essential (primary) hypertension; Z87.891 Personal history of nicotine dependence
CPT/HCPCS: 99212; G0463

== ENCOUNTER 2018-06-28 09:43 | Emergency (ER) | payer BC ==
[2018-06-28 09:55] VITALS: BP 187/101
[2018-06-28 10:13] LABS: Influenza A Molecular NEGATIVE (Negative); Influenza B Molecular NEGATIVE (Negative)
--- NOTE | 2018-06-28 10:13 | UC ---
FLU HPI - HPI Summary HPI Summary: 32 yo female presents with fatigue, body aches, and dry cough that began yesterday. She tells me that her was seen yesterday and diagnosed with the flu. She was at work today, but left due to not feeling well. Has not taken anything OTC for her symptoms. Denies fever, chills, sore throat, SOB, n/v. - History of Current Complaint Chief Complaint: UCRespiratory Stated Complaint: FLU LIKE SYMPTOMS Time Seen by Provider: 06/28/18 09:46 Hx Obtained From: Patient Hx Last Menstrual Period: iud in place Onset/Duration: Sudden Onset Severity Currently: Mild Severity Initially: Mild Pain Intensity: 2 Pain Scale Used: 0-10 Numeric - Allergy/Home Medications Allergies/Adverse Reactions: Allergies Allergy/AdvReac Type Severity Reaction Status Date / Time clindamycin Allergy Rash Verified 06/28/18 09:55 Home Medications: Home Medications hydroCHLOROthiazide [Hydrochlorothiazide] 12.5 mg PO DAILY 06/28/18 [History Confirmed 06/28/18] PMH/Surg Hx/FS Hx/Imm Hx Endocrine History: Hypothyroidism Cardiovascular History: Hypertension Psychological History: Anxiety, Depression - Surgical History Surgical History: Yes Surgery Procedure, Year, and Place: Apr 2012 -Appendectomy. September 2012, OCTOBER 2016 - - Family History Known Family History: Positive: Unknown - Pt is adopted Negative: Cardiac Disease, Hypertension, Diabetes - Social History Occupation: Employed Full-time Lives: With Family Alcohol Use: Rare Substance Use Type: None Smoking Status (MU): Former Smoker Type: Cigarettes Have You Smoked in the Last Year: No When Did the Patient Quit Smoking/Using Tobacco: 2011 - Immunization History Most Recent Influenza Vaccination: declined Most Recent Pneumonia Vaccination: unsure Review of Systems All Other Systems Reviewed And Are Negative: Yes Constitutional: Positive: Fatigue, Other - Body aches Skin: Positive: Negative Eyes: Positive: Negative ENT: Positive: Negative Respiratory: Positive: Cough Cardiovascular: Positive: Negative Gastrointestinal: Positive: Negative Neurovascular: Positive: Negative Neurological: Positive: Negative Psychological: Positive: Negative Physical Exam - Summary Physical Exam Summary: GENERAL: NAD. WDWN. No pain distress. SKIN: No rashes, sores, lesions, or open wounds. HEENT: Head: AT/NC Eyes: EOM intact. Conjunctiva clear without inflammation or discharge. Ears: Hearing grossly normal. TMs intact, no bulging, erythema, or edema. Nose: Nasal mucosa pink and moist. NTTP maxillary and frontal sinus. Throat: Posterior oropharynx without exudates, erythema, or tonsillar enlargement. Uvula midline. NECK: Supple. Nontender. No lymphadenopathy. CHEST: CTAB. No r/r/w. No accessory muscle use. Breathing comfortably and in no distress. CV: RRR. Without m/r/g. Pulses intact. Cap refill <2seconds NEURO: Alert. PSYCH: Age appropriate behavior. Triage Information Reviewed: Yes Vital Signs: Initial Vital Signs Temp 97.8 F 06/28/18 09:51 Pulse 83 06/28/18 09:51 Resp 18 06/28/18 09:51 BP 187/101 06/28/18 09:51 Pulse Ox 99 06/28/18 09:51 Laboratory Tests 06/28/18 09:59 Influenza A (Rapid) Negative Influenza B (Rapid) Negative Vital Signs Reviewed: Yes Flu Course/Dx - Course Course Of Treatment: POC flu negative, however given her symptoms and exposure will treat with tamiflu. - Differential Dx/Diagnosis Provider Diagnosis: Influenza Discharge - Sign-Out/Discharge Documenting (check all that apply): Patient Departure All imaging exams completed and their final reports reviewed: No Studies - Discharge Plan Condition: Stable Disposition: HOME Prescriptions: Oseltamivir CAP* [Tamiflu CAP*] 75 mg PO BID #10 cap Patient Education Materials: Influenza (DC) Forms: *Work Release Referrals: Bassam Hammer DO [Primary Care Provider] - Additional Instructions: If you develop a fever, shortness of breath, chest pain, new or worsening symptoms - please call your PCP or go to the ED. Your blood pressure was high at todays visit. Please see your primary provider within 4 weeks for recheck and re-evaluation. - Billing Disposition and Condition Condition: STABLE Disposition: Home
== END 2018-06-28 10:26 | disposition home or self-care (01) ==
LOC: UCEAST 09:43
DX: J11.1 Influenza due to unidentified influenza virus with other respiratory manifestations (principal); Z87.891 Personal history of nicotine dependence; I10 Essential (primary) hypertension; Z88.1 Allergy status to other antibiotic agents
CPT/HCPCS: 99212; G0463